=== PATIENT | male | born 1955 | race Caucasian/White ===

== ENCOUNTER 2017-09-16 08:14 | Outpatient (RCR) | payer BC, SELFPAY ==
--- NOTE | 2017-09-16 09:09 | HP.PTEVAL ---
Patient's Visit Information YOSELYN ROLAND is a 62 year old M referred to Physical Therapy by BLADIMIR García NP.JGEORG with a diagnosis of vertigo. Date of Evaluation: 09/16/17 Physical Therapist: Thuan Jimenez DPT, OC - Visit Plan Frequency: 1x/Week Duration: 2-4 Weeks Plan: Given VOR standing ft at counter horizontal 60 sec 3x/day for HEP and call if problems, reviewed safety with gait uneven surfaces and plenty of light. - Subjective Subjective: Vertigo is off. Symptoms are verring R and was falling down. Had a lot of spinning early on but meds have helped. Last couple days have been OK. Vertigo started last Tuesday night 9 days ago with bending down and could not stand for a few seconds. Went to ER and had catscan and heart checked and they were OK. Currently feels lightheaded especially on steps or lots of movement and needs to stop and catch up. Bending causes spinning. Lying in bed seems OK. Has to be careful on steps. Sleep is OK but sinus acting up. 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 On the go all night. Did not miss work because it happened on the weekend. Activities at home are normal but has to be careful and doesn't feel great. Feels 90% back to normal. - Objective Walks into PT and [employer] chair and bed I. Steps are reciprocal without rail when cued. romberg eo and ec are good, foam eo good and foam ec 10 seconds. - R hallpike. Dizzy with L hallpike treated with Tressa and then - L hallpike.(positive test was dizzy for 5 seconds but closed eyes so no obvious nystagmus.). Oculomotor: Pursuit and saccades are normal. no nystagmus with gaze or head shake. VOR is symptomatic with fast movement after 30 seconds and hard to keep eyes on target L. + L head thrust. - skew eye deviation - Balance Scores Functional Gait Assessment Score: 26 % Disability: 13.3400 - Goals Goal 1:: Abolisjh dizzy/lightheaded feeling and 100% better. Goal Time Frame: 2-4 Weeks Goal 2:: VOR walking easily and without imbalance. Goal Time Frame: 2-4 Weeks Goal 3:: FGA to reduce fall risk. Goal Time Frame: 2-4 Weeks - Rehabilitation Potential Physical Therapy Diagnosis: vertigo positional vs unilateral vestibular hypofucntion L - Anticipated Interventions Patient/Client Instruction: Educate patient on: Condition, Plan of Care, Risk Factors For the Purpose of:: To increase tolerance to activity/condition/position, To improve safety Therapeutic Exercise to Include: Balance training Comment: adaptation For the Purpose of:: To increase tolerance to activity/condition/position, To improve balance, To improve safety with gait Thank you for the opportunity to evaluate your patient. For Medicare and Medicare HMO plans, please review the plan of care and approve it. It will need to be FAXED BACK to us at [phone] for Medicare purposes. Please let me know if there are questions or concerns regarding this plan of care. Physician Signature: Date:
--- NOTE | 2017-12-05 15:11 | HP.PT.NRP ---
HP - Discharge Summary (1) - Patient Information YOSELYN ROLAND was seen in my office for initial evaluation on 09/16/17. The following Plan of Care was established for this patient: Initial Frequency: 1x/Week Initial Duration: 2-4 Weeks - Anticipated Interventions Patient/Client Instruction: Educate patient on: Condition, Plan of Care, Risk Factors For the Purpose of:: To increase tolerance to activity/condition/position, To improve safety Therapeutic Exercise to Include: Balance training For the Purpose of:: To increase tolerance to activity/condition/position, To improve balance, To improve safety with gait This patient was last seen in our office 09/16/17. Pertinent comments regarding their Physical therapy will appear below: Pt seen one visit. He was to return the following week to monitor ex adn progress as appropriate but did not attend that visit. at this point, it has been over 2 months and I will discontinue due to nonattendance. At this point I will be discontinuing this patient from physical therapy. I would be happy to see this patient again in the future if found appropriate by the physician. Thank you! Thuan Jimenez, DPT, OC
== END 2017-09-16 19:00 | disposition home or self-care (01) ==
LOC: PT 08:14
PROVIDERS: Family Provider Internal Medicine; PCP Internal Medicine; Visit Provider Nurse Practitioner Primary Care
DX: R42 Dizziness and giddiness (principal)
CPT/HCPCS: 97162

== ENCOUNTER 2018-01-19 07:17 | Emergency (ER) | payer BC, SELFPAY ==
[2018-01-19 07:19] VITALS: BP 168/82; PULSE 56; RESP 18; TEMP 36.3; O2SAT 98; BMI 28.5
--- NOTE | 2018-01-19 07:39 | CT_ITS ---
STUDY: CT BRAIN WITHOUT CONTRAST REASON FOR EXAM: Male, 62 years old. Dizziness and not feeling well since last night. RADIATION DOSAGE (If Supplied By Facility): CTDIvol = ( 44.99 ) mGy, DLP = ( 812.98 ) mGycm TECHNIQUE: Transaxial CT imaging of the brain was performed without administration of intravenous contrast material. Sagittal/coronal reconstructions. Individualized dose optimization techniques were used for this CT. COMPARISON: None available. FINDINGS: Normal appearing soft tissue structures. Normal calvarium. No depressed skull fracture identified. Severe right and mild left TMJ degenerative changes. Normal size ventricles and extra-axial spaces for the patient's age. Normal white matter tracts of the cerebral hemispheres. Mild diffuse symmetric bilateral basal ganglia calcifications seen. Normal-appearing thalami. Normal brainstem. Normal cerebellum except left cerebellum posterior lateral diffuse small area of increased attenuation noted consistent with calcification. There is no CT finding of intracranial acute hemorrhage. There are no CT findings of large territorial acute ischemic infarction. Nonacute visualized paranasal sinuses, orbits, mastoids and middle ears bilaterally. CT/Brain/Head without Contrast IMPRESSION: Nonacute unenhanced CT scan of the brain. Electronically Signed: Jamison Crenshaw, at 8:35 EDT Tel , Service support ,
[2018-01-19 07:48] LABS: Bacteria 0 SEEN /hpf (None Seen); Mucous, Urine 0 SEEN /hpf (<or=2+); Squamous Epithelial Cells - UA 0 SEEN /hpf (0-5)
--- NOTE | 2018-01-19 07:51 | ED.VISSUMM ---
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 he went to bed feeling fine, he has a sense of nasal congestion which is chronic for him he has no headache no change in vision or difficulty with speech, no difficulty with thinking or cognition, he has full range of motion of his extremities able to undergo and execute all his daily activities, He has no history of SD PE DVT stroke or seizure he has hypertension is well controlled he is eating and drinking well with no complaints Physical Examination: [] His vital signs are within normal range she is resting comforting the bed as long as he lay still in the bed he has no complaints I stood and walked him he walked without difficulty with no nystagmus or ataxia he complained of very very mild sense of dizziness with ambulation, in the bed when he is not moving he has no complaints, his head exams unremarkable moving his head left or right does not cause dizziness or nystagmus his HEENT and cranial nerve exams are unremarkable his lungs are clear heart tones are normal abdomen soft nontender upper lower extremities are generally unremarkable he has full range of motion. Station normal gait his NIH is 0 to his skin he has scattered lesions consisting of small pits to the skin reports related to the fiberglass he is in contact with at work that causes him to itch Test Results: [] Emergency Department Course and Treatment: [] His complaints CT labs His labs are all unremarkable as is his CT on reevaluation he feels better we discussed the differential we discussed the concept of the possibility of small TIA causing the above versus peripheral vertigo etc. we discussed inpatient versus outpatient management the fact he will require additional studies, he indicated he did not wish to be admitted he understood all the above preferred outpatient management and his real issue was he needs a work excuse as he missed work and needs a work excuse he will follow with his family doctor return for change in symptoms he will be started on Antivert his physical exam neurologic exam unremarkable as above Treatment Plan: [] Disposition: [] Home stable Impression: [] Dizziness and vertigo This note was generated with [employer] dictation software. It may contain incorrect words, spelling, and punctuation that were not noted in review of the chart prior to signing ED Disposition - Plan for ED Patient: Chief Complaint: Dizziness Referrals: Sumi Funez MD [Primary Care Provider] -
[2018-01-19 07:52] LABS: Color, Urine Yellow (Yellow); Glucose, Dipstick Normal (Normal); Ketone-Dipstick Negative (Negative); Leukocyte Esterase-Dipstick Negative /ul (Negative); Nitrite-Dipstick Negative (Negative); Occult Blood-Urine Negative /ul (Negative); Protein-Dipstick Negative (Negative); Urine Bilirubin Dipstick Negative (Negative); Urine Clarity Clear (Clear); Urine Urobilinogen Normal (Normal)
[2018-01-19 08:01] LABS: Red Blood Cells-Urine 0-5 SEEN /hpf (0-5); White Blood Cells 0-5 SEEN /hpf (0-5)
[2018-01-19 08:19] LABS: Absolute Lymphocyte Count 2.25 X10^3/ul (0.83-4.51); Absolute Neutrophil Count 2.2 X10^3/uL (2.0-7.7); Basophil# 0.02 X10^3/uL; Basophil% 0.4 % (0-1); Eosinophil# 0.33 X10^3/uL; Eosinophils% 6.1 % (0-5); Hematocrit 40.8 % (40-54); Lymphocyte # 2.25 X10^3/ul (4.0); Lymphocyte % 41.7 % (19-41); Mean Corp Hgb Conc 31.9 g/gl (32-36); Mean Corpuscular Hgb 28.5 pg (27.0-32.0); Mean Corpuscular Volume 89.5 fL (80-94); Monocyte# 0.63 X10^3/uL; Monocyte% 11.7 % (0-10); Neutrophil # 2.15 X10^3/uL (2.7-7.7); Neutrophil % 39.9 % (47-70); Platelet Count 248 K/mm3 (150-450); RBC Distribution Width CV 14.7 % (11.6-14.6); Red Blood Count 4.56 M/mm3 (4.6-6.2); White Blood Count 5.4 K/mm3 (4.4-11.0)
[2018-01-19 08:25] LABS: POSITIVE COUNT NO; POSITIVE DIFFERENTIAL NO; POSITIVE MORPHOLOGY NO
[2018-01-19 08:26] LABS: AST(SGOT) 22 U/L (15-37); Alanine Aminotransfer ALT/SGPT 40 U/L (16-61); Albumin, Serum 3.3 g/dL (3.2-5.0); Alkaline Phosphatase 84 U/L (45-117); Anion Gap 7 (5-15); BUN 27 mg/dL (7-18); BUN/Creat Ratio 21.6 RATIO (10-20); Bilirubin, Direct 0.11 mg/dL (0.00-0.30); Calcium,Total 8.4 mg/dL (8.5-10.1); Chloride 107 mmol/L (98-107); Creatinine, Serum 1.25 mg/dL (0.70-1.30); EST Glomerular Filtration Rate 62 mL/min (>60); Est Glom Filt Rate - Afr Amer 75 mL/min (>60); Estimated Creatinine Clearance 65.26 ml/min; Globulin 3.6 g/dL (2.2-4.2); Glucose 84 mg/dL (74-106); Lipase 221 U/L (73-393); Potassium 3.5 mmol/L (3.5-5.1); Protein, Total 6.9 g/dL (6.4-8.2); Sodium Level 143 mmol/L (136-145)
[2018-01-19] MEDS: 0.9% Normal Saline 1,000 ML 150 ML IV (08:50)
--- NOTE | 2018-01-19 09:28 | ED.DEP ---
ED Disposition - Plan for ED Patient: Chief Complaint: Dizziness Instructions: ED BPV Vertigo, ED Dizziness [facility]O Prescriptions: Meclizine HCl [Antivert] 25 mg PO 4X/DAY PRN PRN #20 tab PRN Reason: Dizziness Referrals: Sumi Funez MD [Primary Care Provider] -
== END 2018-01-19 09:50 | disposition home or self-care (01) ==
LOC: ED 08:35
PROVIDERS: Emergency Provider Emergency Medicine; Family Provider Internal Medicine; PCP Internal Medicine
DX: R42 Dizziness and giddiness (principal); I10 Essential (primary) hypertension; Z79.899 Other long term (current) drug therapy
CPT/HCPCS: 70450; 80048; 80076; 81001; 83690; 84484; 85025; 93005; 96360; 99283; J7030; J7040; A4216

== ENCOUNTER → 2024-06-11 | Outpatient (CLI) | payer MEDICARE, SELFPAY ==
[2024-06-11] MEDS: Methacholine Chloride 18 ml neb kit INHALATION (13:15)
== END | disposition home or self-care (01) ==
LOC: PSN 12:49
PROVIDERS: PCP Internal Medicine
DX: R05.3 Chronic cough (principal)
CPT/HCPCS: 94070; 95070